=== PATIENT | female | born 1980 | race Hispanic/Latino ===

== ENCOUNTER 2019-08-20 20:50 | Emergency (ER) | payer MEDICARE, MEDICAID ==
[2019-08-21 00:55] LABS: Basophils % (Auto) 0.4 % (0.0-1.8); Eosinophils # (Auto) 0.1 K/mm3 (0.0-0.4); Eosinophils % (Auto) 1.4 % (0.0-4.3); Hematocrit 33.7 % (30.3-42.9); Hemoglobin 10.9 gm/dl (10.1-14.3); Lymphocytes # (Auto) 2.3 K/mm3 (1.2-5.4); Lymphocytes % (Auto) 25.7 % (13.4-35.0); Mean Corpuscular HGB Conc 33 % (30-34); Mean Corpuscular Volume 88 fl (79-97); Monocytes # (Auto) 0.7 K/mm3 (0.0-0.8); Platelet Count 269 K/mm3 (140-440); Red Blood Count 3.84 M/mm3 (3.65-5.03); Red Cell Distribution Width 16.4 % (13.2-15.2)
[2019-08-21 01:19] LABS: Albumin 3.8 g/dL (3.9-5); Calcium 9.4 mg/dL (8.4-10.2)
[2019-08-21 02:50] VITALS: BP 117/72
--- NOTE | 2019-08-21 02:54 | Emergency Department Report ---
ED General Adult HPI - General Chief complaint: Hyperglycemia Stated complaint: POSS HIGH BS DRY MOUTH Source: patient Mode of arrival: Ambulatory Limitations: No Limitations - History of Present Illness Initial comments: Patient is a 39-year-old white female with a history of [id number] diabetes and who does not take any medications presents to the ED with hypergly cemia. Patient states that prior to arrival in the ED her blood sugar was 316 mg/dL at home after she had dinner about an hour earlier. Patient denies chest pain, shortness of breath, dizziness, syncope, lightheadedness, nausea, vomiting, abdominal pain, change in vision or fever and chills and cough. Patient stated that she came to the ED for further evaluation the initial blood sugar reading that she obtain a home MD Complaint: Hyperglycemia -: Sudden, hour(s) (12) Location: head Radiation: non-radiation Severity scale (0 -10): 0 Consistency: intermittent Improves with: none Worsens with: none Associated Symptoms: denies other symptoms. denies: confusion, chest pain, cough, fever/chills, headaches - Related Data Allergies Allergy/AdvReac Type Severity Reaction Status Date / Time No Known Allergies Allergy Unverified 08/20/19 21:08 ED Review of Systems ROS: Stated complaint: POSS HIGH BS DRY MOUTH Other details as noted in HPI Constitutional: malaise, weakness, other (hyperglycemia). denies: chills, fever Eyes: denies: eye pain, eye discharge, vision change ENT: denies: ear pain, throat pain Respiratory: denies: cough, shortness of breath, wheezing Cardiovascular: denies: chest pain, palpitations Endocrine: no symptoms reported Gastrointestinal: denies: abdominal pain, nausea, diarrhea Genitourinary: denies: urgency, dysuria, discharge Musculoskeletal: denies: back pain, joint swelling, arthralgia Skin: denies: rash, lesions Neurological: denies: headache, weakness, paresthesias Psychiatric: denies: anxiety, depression Hematological/Lymphatic: denies: easy bleeding, easy bruising ED Past Medical Hx - Past Medical History Previous Medical History?: Yes Hx Diabetes: Yes Hx Psychiatric Treatment: Yes (depression,bipolar) - Surgical History Past Surgical History?: Yes Hx Cholecystectomy: Yes Additional Surgical History: hysterectomy,tonsillectomy, lt knee, umbilical hernia repair - Social History Smoking Status: Never Smoker Substance Use Type: None ED Physical Exam - General Limitations: No Limitations General appearance: alert, in no apparent distress - Head Head exam: Present: atraumatic, normocephalic, normal inspection - Eye Eye exam: Present: normal appearance, PERRL, EOMI - ENT ENT exam: Present: normal exam, normal orophraynx, mucous membranes moist, TM's normal bilaterally, normal external ear exam - Neck Neck exam: Present: normal inspection, full ROM - Respiratory Respiratory exam: Present: normal lung sounds bilaterally. Absent: respiratory distress, wheezes, rales, stridor, chest wall tenderness, prolonged expiratory - Cardiovascular Cardiovascular Exam: Present: regular rate, normal rhythm, normal heart sounds. Absent: systolic murmur, diastolic murmur, rubs, gallop - GI/Abdominal GI/Abdominal exam: Present: soft, normal bowel sounds. Absent: tenderness, gu arding, hyperactive bowel sounds, organomegaly - Extremities Exam Extremities exam: Present: normal inspection, full ROM, normal capillary refill - Back Exam Back exam: Present: normal inspection, full ROM. Absent: tenderness, CVA tenderness (R), muscle spasm, paraspinal tenderness, vertebral tenderness - Neurological Exam Neurological exam: Present: alert, oriented X3, CN II-XII intact, normal gait, reflexes normal - Psychiatric Psychiatric exam: Present: normal affect, normal mood - Skin Skin exam: Present: warm, dry, intact, normal color. Absent: rash ED Course Vital Signs 08/20/19 20:54 Temperature 98.2 F Pulse Rate 96 H Respiratory 12 Rate Blood Pressure 150/75 O2 Sat by Pulse 95 Oximetry ED Medical Decision Making - Lab Data Result diagrams: 08/21/19 00:20 08/21/19 00:20 - Medical Decision Making Patient is a 39-year-old white female with a history of [id number] diabetes and who does not take any medications presents to the ED with hyperglycemia. Patient states that prior to arrival in the ED her blood sugar was 316 mg/dL at home after she had dinner about an hour earlier. In the ED, patient is alert and oriented 3 and is not in distress. The initial fingerstick Accu-Chek reading was 165 mg/dL. Lab test results show hyperglycemia 128 mg/dL. Patient was discharged home and advised to follow-up with her primary care physician in 5-7 days for reevaluation. Patient was advised to return to the ED immediately if symptoms get worse. - Differential Diagnosis hyperglycemia; Dehydration; Dizziness; Critical care attestation.: If time is entered above; I have spent that time in minutes in the direct care of this critically ill patient, excluding procedure time. ED Disposition Clinical Impression: Hyperglycemia due to type 2 diabetes mellitus Qualifiers: Diabetes mellitus buttermaker continuous churn insulin use: without buttermaker continuous churn use Qualified Code(s): E11.65 - Type 2 diabetes mellitus with hyperglycemia Disposition: TO HOME OR SELFCARE Is pt being admited?: No Does the pt Need Aspirin: No Condition: Stable Instructions: Diabetes Mellitus Type 2 in Adults (ED) Additional Instructions: Follow-up with your primary care physician in 2-3 days for reevaluation. Drink plenty of fluids. Return to the ED immediately if symptoms get worse. Referrals: PRIMARY CARE, [Primary Care Provider] - 3-5 Days Time of Disposition: 02:37 Print Language: JORDANIAN
== END 2019-08-21 02:48 | disposition home or self-care (01) ==
LOC: ED 20:50
DX: E11.65 Type 2 diabetes mellitus with hyperglycemia (principal); F31.9 Bipolar disorder, unspecified; Z90.710 Acquired absence of both cervix and uterus; Z90.89 Acquired absence of other organs; Z90.49 Acquired absence of other specified parts of digestive tract
CPT/HCPCS: 36415; 80053; 82962; 85025

== ENCOUNTER 2019-08-29 21:54 | Emergency (ER) | payer MEDICARE, MEDICAID ==
[2019-08-30 00:26] LABS: Basophils % (Auto) 0.3 % (0.0-1.8); Eosinophils # (Auto) 0.1 K/mm3 (0.0-0.4); Eosinophils % (Auto) 1.1 % (0.0-4.3); Hematocrit 34.4 % (30.3-42.9); Hemoglobin 11.5 gm/dl (10.1-14.3); Lymphocytes # (Auto) 2.3 K/mm3 (1.2-5.4); Lymphocytes % (Auto) 21.2 % (13.4-35.0); Mean Corpuscular HGB Conc 33 % (30-34); Mean Corpuscular Volume 89 fl (79-97); Monocytes # (Auto) 0.7 K/mm3 (0.0-0.8); Monocytes % (Auto) 6.1 % (0.0-7.3); Platelet Count 293 K/mm3 (140-440); Red Blood Count 3.89 M/mm3 (3.65-5.03)
[2019-08-30 00:39] LABS: Calcium 9.3 mg/dL (8.4-10.2)
[2019-08-30 00:46] LABS: Bacteria,Urine 2+ /HPF (Negative); Bilirubin,Urine NEG (Negative); Blood,Urine NEG (Negative); Color,Urine Yellow (Yellow); Mucus,Urine FEW /HPF; Protein,Urine <15 mg/dL mg/dL (Negative); Urobilinogen,Urine < 2.0 mg/dL (<2.0)
--- NOTE | 2019-08-30 06:15 | Emergency Department Report ---
ED General Adult HPI - General Chief complaint: Hyperglycemia Stated complaint: ELEVATED GLUCOSE Time Seen by Provider: 08/30/19 04:24 Source: patient Mode of arrival: Ambulatory Limitations: No Limitations - History of Present Illness Initial comments: She is a 39 year old lady with a history of bipolar disorder. The history she reports to me is at odds with the triage history. Triage states patient complains high blood sugar of 209 at home she reports nausea, dizziness headache and flank pain. The patient is not complaining of headache whatsoever. She states that she was sitting in a chair and got up and then dizzy and then fell. She thinks she passed out. She states this is happened to her before. She has no history of cardiac or neurological disease. She is not complaining of pain whatsoever. She states that she is taking nothing for diabetes. The patient was here on August 21 with a similar complaint of hyperglycemia at home. She is found to have a sugar of 128 at that time. -: Gradual Consistency: now resolved Improves with: none Worsens with: none Associated Symptoms: denies other symptoms - Related Data Allergies Allergy/AdvReac Type Severity Reaction Status Date / Time No Known Allergies Allergy Unverified 08/20/19 21:08 ED Review of Systems ROS: Stated complaint: ELEVATED GLUCOSE Other details as noted in HPI Constitutional: denies: chills, fever Eyes: denies: eye pain, eye discharge, vision change ENT: denies: ear pain, throat pain Respiratory: denies: cough, shortness of breath, wheezing Cardiovascular: syncope. denies: chest pain, palpitations Endocrine: no symptoms reported Gastrointestinal: denies: abdominal pain, nausea, diarrhea Genitourinary: denies: urgency, dysuria, discharge Musculoskeletal: denies: back pain, joint swelling, arthralgia Skin: denies: rash, lesions Neurological: denies: headache, weakness, paresthesias Psychiatric: denies: anxiety, depression Hematological/Lymphatic: denies: easy bleeding, easy bruising ED Past Medical Hx - Past Medical History Previous Medical History?: Yes Hx Diabetes: Yes Hx Psychiatric Treatment: Yes (depression,bipolar) - Surgical History Past Surgical History?: Yes Hx Cholecystectomy: Yes Additional Surgical History: hysterectomy,tonsillectomy, lt knee, umbilical hernia repair - Social History Smoking Status: Never Smoker Substance Use Type: None ED Physical Exam - General Limitations: No Limitations General appearance: alert, in no apparent distress, obese - Head Head exam: Present: atraumatic, normocephalic - Eye Eye exam: Present: normal appearance - ENT ENT exam: Present: mucous membranes moist - Neck Neck exam: Present: normal inspection - Respiratory Respiratory exam: Present: normal lung sounds bilaterally. Absent: respiratory distress - Cardiovascular Cardiovascular Exam: Present: regular rate, normal rhythm. Absent: systolic murmur, diastolic murmur, rubs, gallop - GI/Abdominal GI/Abdominal exam: Present: soft, normal bowel sounds. Absent: distended, tenderness, guarding, rebound, rigid - Extremities Exam Extremities exam: Present: normal inspection, full ROM, normal capillary refill. Absent: tenderness, pedal edema, joint swelling, calf tenderness - Back Exam Back exam: Present: normal inspection. Absent: CVA tenderness (R), CVA tenderness (L), muscle spasm, paraspinal tenderness, vertebral tenderness - Neurological Exam Neurological exam: Present: alert, oriented X3, CN II-XII intact. Absent: motor sensory deficit - Psychiatric Psychiatric exam: Present: normal mood, flat affect - Skin Skin exam: Present: warm, dry, intact, normal color. Absent: rash ED Course Vital Signs 08/29/19 08/30/19 08/30/19 22:04 04:36 05:00 Temperature 98.9 F 98.3 F Pulse Rate 96 H 77 79 Respiratory 16 16 20 Rate Blood Pressure 142/68 140/74 Blood Pressure 138/83 [Right] O2 Sat by Pulse 95 100 98 Oximetry 08/30/19 08/30/19 06:01 07:00 Temperature Pulse Rate 69 75 Respiratory 16 18 Rate Blood Pressure 111/51 113/58 Blood Pressure [Right] O2 Sat by Pulse 92 98 Oximetry - Reevaluation(s) Reevaluation #1: Patient remained clinically stable. Twelve-lead EKG was obtained and was reasonably normal. She is appropriate for outpatient disposition. 08/30/19 07:48 Reevaluation #2: Patient was noted to have sats in the low 90s while asleep. The record shows that she has had previous sleep studies. It appears that she should be utilizing CPAP. She denies any prior prescription. She will be referred back to her sleep study doctor and primary care. 08/30/19 07:51 ED Medical Decision Making - Lab Data Result diagrams: 08/30/19 00:00 08/30/19 00:00 Laboratory Results - last 24 hr 08/29/19 08/30/19 08/30/19 23:53 00:00 00:00 WBC 10.9 RBC 3.89 Hgb 11.5 Hct 34.4 MCV 89 MCH 30 MCHC 33 RDW 17.0 H Plt Count 293 Lymph % (Auto) 21.2 [place] % (Auto) 6.1 Eos % (Auto) 1.1 Baso % (Auto) 0.3 Lymph # 2.3 [place]ke # 0.7 Eos # 0.1 Baso # 0.0 Seg Neutrophils % 71.3 H Seg Neutrophils # 7.8 H Sodium 141 Potassium 4.3 Chloride 102.0 Carbon Dioxide 27 Anion Gap 16 BUN 19 H Creatinine 1.2 Estimated GFR 50 BUN/Creatinine Ratio 16 Glucose 119 H POC Glucose 151 H Calcium 9.3 Urine Color Urine Turbidity Urine pH Ur Specific [place] Urine Protein Urine Glucose (UA) Urine Ketones Urine Blood Urine Nitrite Urine Bilirubin Urine Urobilinogen Ur Leukocyte Esterase Urine WBC (Auto) Urine RBC (Auto) U Epithel Cells (Auto) Urine Bacteria (Auto) Urine Mucus 08/30/19 08/30/19 00:27 04:42 WBC RBC Hgb Hct MCV MCH MCHC RDW Plt Count Lymph % (Auto) [place] % (Auto) Eos % (Auto) Baso % (Auto) Lymph # [place] # Eos # Baso # Seg Neutrophils % Seg Neutrophils # Sodium Potassium Chloride Carbon Dioxide Anion Gap BUN Creatinine Estimated GFR BUN/Creatinine Ratio Glucose POC Glucose 92 Calcium Urine Color Yellow Urine Turbidity Clear Urine pH 7.0 Ur Specific [place] 1.023 Urine Protein <15 mg/dl Urine Glucose (UA) Neg Urine Ketones Neg Urine Blood Neg Urine Nitrite Neg Urine Bilirubin Neg Urine Urobilinogen < 2.0 Ur Leukocyte Esterase Neg Urine WBC (Auto) 7.0 H Urine RBC (Auto) 8.0 U Epithel Cells (Auto) 4.0 Urine Bacteria (Auto) 2+ Urine Mucus Few - EKG Data -: EKG Interpreted by Me EKG shows normal: sinus rhythm, axis, intervals, QRS complexes, ST-T waves Rate: normal - EKG Data Interpretation: other (somewhat low voltage noted) Critical care attestation.: If time is entered above; I have spent that time in minutes in the direct care of this critically ill patient, excluding procedure time. ED Disposition Clinical Impression: Vasovagal episode Bipolar disorder Qualifiers: Active/Remission status: remission status unspecified Qualified Code(s): F31.9 - Bipolar disorder, unspecified Disposition: DC-01 TO HOME OR SELFCARE Is pt being admited?: No Does the pt Need Aspirin: No Condition: Stable Instructions: Syncope (ED), Hyperglycemia, Non-Diabetic (ED) Additional Instructions: Dietary modification is recommended at this time. See primary care doctor for glucose tolerance test. See sleep study for advice concerning CPAP. Return to the emergency department any acute change or problem. Referrals: JENELLE DESHPANDE MD [Primary Care Provider] - 3-5 Days AMAURI EASTMAN MD [Referring] - 2-3 Days [facility] [Provider Group] - 2-3 Days Time of Disposition: 07:52
[2019-08-30 06:27] LABS: HCG Qualitative,Urine Negative (Negative)
[2019-08-30 08:15] VITALS: BP 105/68
== END 2019-08-30 09:12 | disposition home or self-care (01) ==
LOC: ED 21:54
DX: F31.9 Bipolar disorder, unspecified (principal); R55 Syncope and collapse; E11.9 Type 2 diabetes mellitus without complications; Z98.51 Tubal ligation status; Z98.890 Other specified postprocedural states
CPT/HCPCS: 36415; 80048; 81001; 81025; 82962; 85025; 93005; 93010